=== PATIENT | female | born 2000 | race Hispanic/Latino ===

== ENCOUNTER 2025-07-01 12:04 | Emergency (ER) | payer SELFPAY ==
[2025-07-01 12:07] VITALS: BP 113/76
--- NOTE | 2025-07-01 12:59 | ED.GENMED ---
History of Present Illness
General
Chief Complaint: Eye Problems
Time Seen by Provider: 07/01/25 12:46
History of Present Illness
History of Present Illness:
24-year-old female without significant past medical history presenting to the emergency department for left eye discomfort. Patient notes symptoms for 2 weeks. Denies any changes in vision. Denies any pain. Notes some general discomfort. Denies
fever. Reports minimal drainage. She does not wear any contacts. Denies any known foreign body. Denies any additional complaints such as chest pain, difficulty breathing, abdominal pain. 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
device
Phy Exam
Physical Exam
Physical Exam:
General: Well-appearing, no clinical signs of dehydration, nontoxic and in no acute distress
HEENT: protecting airway, pupils equal and reactive, extraocular movements intact. On fluorescein staining, no uptake to the cornea. Apparent scratch to the inferior sclera. Mild erythema to the sclera with no drainage
Neck: appears supple
CV: Normal heart rate
Resp: No accessory muscle use, no increased work of breathing
Abd: No distention
Extremities: No deformities, no swelling
Neuro: alert, no focal neurologic deficit
: deferred
Rectal: deferred
Psych: Normal affect
Skin: Intact
Course
Vital Signs
Initial and Last Documented VS:
Initial Vital Signs
Temp Pulse Resp BP Pulse Ox
98.5 F 66 16 113/76 96
07/01/25 12:07 07/01/25 12:07 07/01/25 12:07 07/01/25 12:07 07/01/25 12:07
Last Documented Vital Signs
Temp Pulse Resp BP Pulse Ox
98.5 F 66 16 113/76 96
07/01/25 12:07 07/01/25 12:07 07/01/25 12:07 07/01/25 12:07 07/01/25 13:01
MDM/Problems Addressed
MDM/Problems Addressed:
24-year-old female presenting for eye irritation for 2 weeks. Vital signs on arrival are normal.
On exam, patient is resting comfortably, no distress or discomfort benign examination of the eye with slight erythema to the sclera. Extraocular movements are intact, pupils are equal and reactive and patient is denying any visual changes.
Fluorescein staining performed, no corneal abrasion. Mild scratch to the inferior sclera suspected source of patient's discomfort. No drainage or concern for conjunctivitis. At this time feel stable for discharge. For therapeutics we will start
patient on erythromycin ointment. Patient instructed on how to use the ointment. Return precautions discussed and patient verbalized understanding
*Pulse Oximetry
SaO2: 96
Oxygen Mode of Delivery: Room air
Patient hypoxic: no
*Critical Care Note
Total Time (30-74mins, 75-104mins- exclusive of procedures): Not Applicable
ED Attending Note
-
Portions of this chart may have been created with voice recognition software.� Occasional wrong word or��sound alike� substitutions may have occurred due to the inherent limitations of voice recognition software.
Discharge Plan
Departure
Patient Disposition: Home (Routine Discharge)
Date of Disposition: 07/01/25
Time of Disposition: 13:05
Patient with high blood pressure during this ER visit?: No
Condition: Good
Discharge Problem:
Abrasion of sclera of left eye
Instructions: Corneal abrasion - ED (DC)
Prescriptions:
New
erythromycin 5 mg/gram (0.5 %) ointment
1 applic LEFT EYE Q6H Qty: 3.5 0RF
Activity Restrictions/Additional Instructions:
You were seen in the emergency department for discomfort to your
You were found to have a scratch on your sclera. You were started on an IM ointment. Please use 4 times a day
Please follow-up closely with your primary care physician.
Return to the emergency department for any worsening of your symptoms, or any development of chest pain, difficulty breathing, abdominal pain with persistent vomiting and inability to tolerate food or liquid by mouth (concern for dehydration),
weakness, headache or confusion, fever greater than 100.4, or any additional symptoms that are concerning to you.
Thank you for choosing [facility].
Interventions
Interventions:
*Risk Screen - Suicide Last Done: 07/01/25 12:07
*General Assessment Last Done: 07/01/25 12:07
Discharge Date and Time
Print Language: CAMEROONIAN
== END 2025-07-01 13:42 | disposition home or self-care (01) ==
LOC: EMR 12:04
PROVIDERS: EMERGENCY PHYSICIAN Student in an Organized Health Care Education/Training Program
DX: S05.02XA Injury of conjunctiva and corneal abrasion without foreign body, left eye, initial encounter (principal); X58.XXXA Exposure to other specified factors, initial encounter
CPT/HCPCS: 99283

== ENCOUNTER 2025-07-15 11:01 | Emergency (ER) | payer SELFPAY ==
[2025-07-15 11:05] VITALS: BP 103/67
--- NOTE | 2025-07-15 13:35 | ED.GENMED ---
History of Present Illness
General
Chief Complaint: Eye Problems
Source: patient
Exam Limitations: none
Time Seen by Provider: 07/15/25 11:37
Nursing documentation reviewed up to this point in time: agreed with
History of Present Illness
History of Present Illness:
Patient is a 24-year-old female who presents with family bedside. She complains of left eye discomfort for the past several weeks. She was seen here July 01 and diagnosed with a questionable abrasion of the sclera of the left eye. She used
erythromycin ointment. She reports symptoms are persistent she feels slight irritation in the eye. She does not wear contacts or glasses. She feels symptoms of vision is blurry
Phy Exam
General Physical Exam
General Presentation: no apparent distress
General age: appears stated age
General Skin: warm, dry and mottled
General Habitus: normal
General Mental: alert
General Hydration: appears well hydrated
Eye Exam
Eye Exam: PERRL, EOMI and other (Left eye with area of redness over the conjunctiva questional slight extension into the iris area. Pupils equal round reactive)
Eye Exam General: PERRL: bilateral and EOM intact: bilateral
Pupil Exam: Bilateral: round and reactive
Neurological Exam
Neurological Exam: alert and oriented x3
Musculoskeletal Exam
Musculoskeletal Exam: full ROM
Skin Exam
Skin Exam: normal color and warm/dry
Psychiatric Exam
Psychiatric Exam: normal mood/affect
Course
Orders/Labs/Results
Orders:
Orders
07/15/25 13:36
Visual Acuity- Treatment ONCE
Vital Signs
Initial and Last Documented VS:
Initial Vital Signs
Temp Pulse Resp BP Pulse Ox
98.4 F 57 16 103/67 99
07/15/25 11:05 07/15/25 11:05 07/15/25 11:05 07/15/25 11:05 07/15/25 11:05
Last Documented Vital Signs
Temp Pulse Resp BP Pulse Ox
98.4 F 57 16 103/67 99
07/15/25 11:05 07/15/25 11:05 07/15/25 11:05 07/15/25 11:05 07/15/25 13:36
MDM/Problems Addressed
Differential Diagnosis Includes:
not limited to corneal abrasion, eye irritation
MDM/Problems Addressed:
Patient is a 24-year-old Belarusian-speaking female presents with family at bedside. Patient has had intermittent left eye pain for the past several weeks seen here July 01 diagnosed with a possible abrasion. On exam patient has redness to the
left lateral conjunctiva possible pterygium. No obvious. Family assisting with translation. She denies any fevers. She is in no acute distress and well-appearing. She does not have insurance but is a patient of and [facility] in clinic. Case
reviewed with ophthalmology Dr. Chao who will see pt as follow up.
*Pulse Oximetry
SaO2: 99
Oxygen Mode of Delivery: Room air
Patient hypoxic: no
*Critical Care Note
Total Time (30-74mins, 75-104mins- exclusive of procedures): Not Applicable
ED Attending Note
-
Portions of this chart may have been created with voice recognition software.� Occasional wrong word or��sound alike� substitutions may have occurred due to the inherent limitations of voice recognition software.
Discharge Plan
Departure
Patient Disposition: Home (Routine Discharge)
Date of Disposition: 07/15/25
Time of Disposition: 13:38
Patient with high blood pressure during this ER visit?: No
Condition: Fair
Covid-19: Not Applicable
Discharge Problem:
Acute left eye pain
Prescriptions:
No Action
erythromycin 5 mg/gram (0.5 %) ointment
1 applic LEFT EYE Q6H Qty: 3.5 0RF
Referrals:
José Miguel Chao MD [Active, Ophthalmology]
NONE,* [Family Provider, Internal Medicine]
Activity Restrictions/Additional Instructions:
Follow-up with eye doctor. Please call today to make an appointment soon as possible
Interventions
Interventions:
*Risk Screen - Suicide Last Done: 07/15/25 11:08
*General Assessment Last Done: 07/15/25 11:08
*Neglect/Abuse Screening Last Done: 07/15/25 11:08
*ED- Fall Risk Assessment Last Done: 07/15/25 11:08
*ED COVID-19 Vaccine History Last Done: 07/15/25 11:08
*ED Influenza Vaccine History Last Done: 07/15/25 11:08
*Nursing Disposition Last Done: 07/15/25 14:15
Discharge Date and Time
Discharge Date/Time: 07/15/25 14:16
Print Language: [id number]
== END 2025-07-15 14:16 | disposition home or self-care (01) ==
LOC: EMR 11:01
PROVIDERS: EMERGENCY PHYSICIAN Emergency Medicine
DX: H57.12 Ocular pain, left eye (principal); Z59.71 Insufficient health insurance coverage
CPT/HCPCS: 99283